=== PATIENT | male | born 1980 | race African-American/Black ===

== ENCOUNTER 2024-06-12 06:56 | Inpatient (IN) | payer OTHER ==
[~2024-06-12] VITALS: Ht 182.9 cm; Wt 127.3 kg
[2024-06-12 07:52] LABS: BASOPHILS % (AUTO) 1.3 % (0.0-2.0); EOSINOPHILS % (AUTO) 3.7 % (1.0-6.0); HEMATOCRIT 45.3 % (41-53); HEMOGLOBIN 15.2 g/dL (13.5-17.5); LYMPHOCYTES # (AUTO) 1.9 K/uL (1.0-4.8); LYMPHOCYTES % (AUTO) 23.6 % (22.0-44.0); MEAN CORPUSCULAR HEMOGLOBIN 27.8 pg (26.0-34.0); MEAN CORPUSCULAR HGB CONC 33.7 G/dL (31.0-37.0); MEAN CORPUSCULAR VOLUME 83 fL (80-100); MONOCYTES # (AUTO) 0.5 K/uL (0.1-1.0); MONOCYTES % (AUTO) 5.9 % (2.0-9.0); NEUTROPHILS # (AUTO) 5.2 K/uL (1.8-7.7); NEUTROPHILS % (AUTO) 65.5 % (40.0-70.0); PLATELET COUNT (AUTO) 215 K/uL (150-450); RED BLOOD CELL COUNT(AUTO) 5.49 MIL/uL (4.50-5.90); RED CELL DISTRIBUTION WIDTH 14.4 % (11.5-14.5)
[2024-06-12 08:03] LABS: ANION GAP 11 mmol/L (8-16); CALCIUM, TOTAL 8.3 mg/dL (8.8-10.5); CARBON DIOXIDE 26 mmol/L (22-29); CHLORIDE 103 mmol/L (98-107); CREATININE 0.92 mg/dL (0.60-1.30); GLOMERULAR FILTR. RATE CALC > 60 mL/min (>60); GLUCOSE,RANDOM 243 mg/dL (70-110); POTASSIUM 3.1 mmol/L (3.5-5.1); SODIUM SERUM 140 mmol/L (136-145); UREA NITROGEN, BLOOD 7 mg/dL (7-18)
[2024-06-12 08:08] LABS: ALANINE AMINOTRANSFERASE 77 U/L (12-78); ALBUMIN 3.2 g/dL (3.4-5.0); ALKALINE PHOSPHATASE 121 U/L (46-116); ASPARTATE AMINOTRANSFERASE 28 U/L (15-37); BILIRUBIN,TOTAL 0.9 mg/dL (0.1-1.0)
[2024-06-12 08:09] LABS: B-TYPE NATRIURETIC PEPTIDE 282 pg/mL (0-100); TROPONIN I-HIGH SENSITIVITY 32 ng/L (<76)
[2024-06-12] MEDS: FUROSEMIDE 20 MG/2 ML VIAL IVP ONE (09:13)
[2024-06-12 09:43] LABS: COVID AG,FIA SOURCE NASAL SWAB
[2024-06-12] MEDS: POTASSIUM CHLORIDE 20 MEQ ER TABLET PO ONE (09:46)
[2024-06-12 10:06] LABS: INFLUENZA TYPE A NEGATIVE FOR TYPE A (NEGATIVE); INFLUENZA TYPE B NEGATIVE FOR TYPE B (NEGATIVE); SARS-COV2 (COVID) ANTIGEN,FIA Negative (Negative)
[2024-06-12] MEDS ORDERED: DEXTROSE 50%-WATER 25 GM/50 ML SYRINGE IVP PRN (10:15)
[2024-06-12] MEDS ORDERED: ATOR-2 PO (10:23)
[2024-06-12] MEDS ORDERED: FURO40TA5 PO (10:23)
[2024-06-12] MEDS ORDERED: BACL20TA PO (10:23)
[2024-06-12] MEDS ORDERED: SACU1TAB PO (10:23)
[2024-06-12] MEDS ORDERED: SPIR-37 PO (10:23)
[2024-06-12] MEDS ORDERED: CARV12.530 PO (10:23)
[2024-06-12] MEDS ORDERED: EZET10TA57 PO (10:23)
[2024-06-12] MEDS ORDERED: TIRZ15PE SQ (10:23)
[2024-06-12] MEDS ORDERED: OXYC1TAB6 PO (10:23)
[2024-06-12] MEDS ORDERED: AMLO5TAB66 PO (10:23)
[2024-06-12] MEDS ORDERED: NITR0.3T12 SL (10:23)
[2024-06-12] MEDS: SACUBITRIL/VALSARTAN 24-26 MG TABLET PO ONE (10:28)
[2024-06-12] MEDS: AmLODIPine BESYLATE 5 MG TABLET PO ONE (10:28)
[2024-06-12] MEDS: CARVEDILOL 6.25 MG TABLET PO ONE (10:28)
[2024-06-12] MEDS: SPIRONOLACTONE 25 MG TABLET PO ONE (10:29)
[2024-06-12] MEDS ORDERED: ALBUTEROL SULFATE 2.5 MG/0.5 ML NEB SOLUTION NEB PRN (10:30)
[2024-06-12] MEDS ORDERED: ACETAMINOPHEN 325 MG TABLET PO PRN (10:30)
[2024-06-12] MEDS ORDERED: CARV25 PO (11:06)
[2024-06-12] MEDS ORDERED: LIDO1ADH72 TP (11:06)
[2024-06-12] MEDS ORDERED: ARIP10642 IM (11:06)
[2024-06-12] MEDS ORDERED: INSU200I4 SQ (11:06)
[2024-06-12] MEDS ORDERED: IBUP-2077 PO (11:06)
[2024-06-12] MEDS ORDERED: AMMO140C4 TP (11:06)
[2024-06-12] MEDS ORDERED: ASPI-1444 PO (11:06)
[2024-06-12] MEDS: INSULIN LISPRO 100 UNITS/ML SQ PRN (11:56)
[2024-06-12 12:21] LABS: GLUCOMETER DEV NAME(LOC) ERT.6; GLUCOSE,POINT OF CARE 254 MG/DL (70-110)
[2024-06-12 14:15] VITALS: BP 134/109; PULSE 104; RESP 18; TEMP 98.3; O2SAT 96
[2024-06-12 16:30] VITALS: BP 151/107; PULSE 112; RESP 20; TEMP 98.1; O2SAT 95
[2024-06-12] MEDS: HEPARIN SODIUM,PORCINE 5,000 UNITS/ML VIAL SQ SCH (17:30)
[2024-06-12 18:31] LABS: GLUCOMETER DEV NAME(LOC) 5N.2C; GLUCOSE,POINT OF CARE 299 MG/DL (70-110)
[2024-06-12 19:26] VITALS: BP 145/99; PULSE 105; RESP 20; TEMP 98.4; O2SAT 97
[2024-06-12] MEDS: SACUBITRIL/VALSARTAN 24-26 MG TABLET PO SCH (20:49)
[2024-06-12] MEDS: CARVEDILOL 12.5 MG TABLET PO SCH (20:50)
[2024-06-12] MEDS: DOCUSATE SODIUM 100 MG CAPSULE PO SCH (20:50)
[2024-06-12] MEDS ORDERED: MAGNESIUM SULFATE 4 GM/WATER 100 ML IV PRN (21:45)
[2024-06-12] MEDS ORDERED: MAGNESIUM OXIDE 400 MG TABLET PO PRN (21:45)
[2024-06-12] MEDS ORDERED: SODIUM CHLORIDE 0.9% 500 ML IV ONE (22:20)
[2024-06-12] MEDS: MAGNESIUM SULFATE 2 GM/WATER 50 ML IV PRN (22:29)
[2024-06-12 22:59] VITALS: BP 115/68; PULSE 92; RESP 20; TEMP 98.1; O2SAT 95
[2024-06-13 03:38] VITALS: BP 125/93; PULSE 89; RESP 22; TEMP 97.9; O2SAT 100
[2024-06-13 06:16] LABS: GLUCOMETER DEV NAME(LOC) 5S.2D; GLUCOSE,POINT OF CARE 323 MG/DL (70-110)
[2024-06-13 07:28] LABS: ANION GAP 9 mmol/L (8-16); CALCIUM, TOTAL 8.1 mg/dL (8.8-10.5); CARBON DIOXIDE 27 mmol/L (22-29); CHLORIDE 104 mmol/L (98-107); CREATININE 0.81 mg/dL (0.60-1.30); GLOMERULAR FILTR. RATE CALC > 60 mL/min (>60); GLUCOSE,RANDOM 223 mg/dL (70-110); POTASSIUM 3.7 mmol/L (3.5-5.1); SODIUM SERUM 140 mmol/L (136-145); UREA NITROGEN, BLOOD 9 mg/dL (7-18)
[2024-06-13] MEDS: FUROSEMIDE 20 MG TABLET PO SCH (08:13)
[2024-06-13] MEDS: SPIRONOLACTONE 25 MG TABLET PO SCH (08:14)
[2024-06-13] MEDS: AmLODIPine BESYLATE 5 MG TABLET PO SCH (08:14)
[2024-06-13] MEDS: EMPAGLIFLOZIN 10 MG TABLET PO SCH (08:14)
[2024-06-13] MEDS: FAMOTIDINE 20 MG TABLET PO SCH (08:14)
[2024-06-13 08:33] VITALS: BP 113/88; PULSE 89; RESP 20; TEMP 98; O2SAT 96
[2024-06-13] MEDS: INSULIN GLARGINE,HUM.REC.ANLOG 100 UNITS/ML SQ SCH (10:07)
[2024-06-13 10:55] LABS: GLUCOMETER DEV NAME(LOC) 5N.2C; GLUCOSE,POINT OF CARE 235 MG/DL (70-110)
[2024-06-13 11:40] LABS: GLUCOMETER DEV NAME(LOC) 5S.2D; GLUCOSE,POINT OF CARE 303 MG/DL (70-110)
[2024-06-13 12:31] LABS: GLUCOMETER DEV NAME(LOC) 5N.2C; GLUCOSE,POINT OF CARE 322 MG/DL (70-110)
[2024-06-13 12:53] VITALS: BP 116/91; PULSE 92; RESP 18; TEMP 98.2; O2SAT 98
== END 2024-06-13 13:40 | disposition home or self-care (01) | DRG 194 ==
LOC: EMS 06:56 → EDH 13:01 → 5S 14:00
PROVIDERS: ADMIT Internal Medicine; ATTEND Internal Medicine
DX: I11.0 Hypertensive heart disease with heart failure (principal); J96.01 Acute respiratory failure with hypoxia; I50.23 Acute on chronic systolic (congestive) heart failure; E83.42 Hypomagnesemia; Z20.822 Contact with and (suspected) exposure to COVID-19; E87.6 Hypokalemia; Z82.49 Family history of ischemic heart disease and other diseases of the circulatory system; Z83.3 Family history of diabetes mellitus; E66.01 Morbid (severe) obesity due to excess calories; Z68.38 Body mass index [BMI] 38.0-38.9, adult; E11.65 Type 2 diabetes mellitus with hyperglycemia; Z79.4 Long term (current) use of insulin
CPT/HCPCS: 71045; 80048; 80053; 82040; 82962; 83735; 83880; 84484; 85025; 85379; 87804; 93005; 93306; 99285; G0378; J1644; J1815; J1940; J3475; J7040; 36415-L1; 36415-TC